=== PATIENT | female | born 1980 | race African-American/Black ===

== ENCOUNTER 2017-01-25 18:32 | Emergency (ER) | payer SELFPAY ==
[~2017-01-25] VITALS: Ht 167.6 cm; Wt 86.5 kg
[2017-01-25] MEDS ORDERED: TETANUS, DIPHTHERIA, PERTUSSIS VAC/PF 0.5ML (>7YR OLD) IM ONE (19:15)
[2017-01-25] MEDS ORDERED: LIDOCAINE HCL/EPINEPHRINE 1%-EPI 1:100,000 30 ML VIAL INFIL ONE (19:15)
[2017-01-25] MEDS ORDERED: LIDOCAINE HCL 1%/EPI 1:200,000 30 ML VIAL IJ ONE (20:00)
[2017-01-25] MEDS ORDERED: LIDOCAINE HCL 1%/EPI 1:200,000 30 ML VIAL MC ONE (20:00)
[2017-01-25 21:20] VITALS: BP 135/79
== END 2017-01-25 21:37 | disposition home or self-care (01) ==
LOC: ER 19:26
DX: S01.511A Laceration without foreign body of lip, initial encounter (principal); W10.8XXA Fall (on) (from) other stairs and steps, initial encounter; Y93.89 Activity, other specified; Y92.89 Other specified places as the place of occurrence of the external cause; Z23 Encounter for immunization
CPT/HCPCS: 12011; 90471; 90715; 99283; X7700; Z7610

== ENCOUNTER 2017-02-02 14:33 | Emergency (ER) | payer SELFPAY ==
[~2017-02-02] VITALS: Ht 167.6 cm; Wt 94.8 kg
[2017-02-02 16:20] VITALS: BP 109/68
== END 2017-02-02 18:05 | disposition home or self-care (01) ==
LOC: ER 17:25
DX: Z48.02 Encounter for removal of sutures (principal)
CPT/HCPCS: 99283; X7700; Z7610